=== PATIENT | female | born 1960 | race Caucasian/White ===

== ENCOUNTER 2020-01-13 22:40 | Emergency (ER) | payer BC ==
[~2020-01-13] VITALS: Ht 177.8 cm; Wt 102.1 kg
[2020-01-13] MEDS ORDERED: AMARYL4 MG PO (22:51)
[2020-01-13 23:55] LABS: ANION GAP 7 mmol/L (7-16); BASOPHILS 0.9 % (0.0-2.0); BUN 15 mg/dL (7-18); CALCIUM 9.8 mg/dL (8.5-10.1); CHLORIDE 104 mmol/L (98-107); CO2 31 mmol/L (21-32); CREATININE 0.7 mg/dL (0.6-1.0); EOSINOPHILS 5.1 % (0.0-3.0); GLUCOSE 107 mg/dL (74-106); HEMATOCRIT 43.3 % (37.0-47.0); HEMOGLOBIN 14.2 gm/dL (12.0-15.0); LYMPHOCYTES 30.3 % (24.0-44.0); MCH 27.7 pg (26.0-34.0); MCHC 32.9 g/dL (28.0-37.0); MCV 84.2 fL (80.0-100.0); MONOCYTES 10.3 % (1.0-8.0); PLATELET COUNT 245 thou/uL (150-400); POLYS 53.4 % (36.0-66.0); POTASSIUM 4.2 mmol/L (3.5-5.1); RBC 5.14 mil/uL (4.20-5.00); RDW 14.8 % (10.5-14.5); SODIUM 142 mmol/L (136-145); WBC 7.5 thou/uL (4.0-11.0)
[2020-01-14 00:04] LABS: TROPONIN-I <0.06 ng/mL (<0.06)
[2020-01-14 01:11] VITALS: BP 155/74
--- NOTE | 2020-01-14 07:37 | EKG ---
[facility] [place] [address] ELECTROCARDIOGRAM REPORT Name: VASILIY JOHNSON Room #: DEP [facility]#: [id number] Admission: 01/13/20 Attend Phys: Discharge: 01/14/20 Date of : 58 Report #: [id number] THIS REPORT FOR: cc: [facility] - Clinic physician unknown [facility] - Clinic physician unknown Michoacano Henry MD [facility] ~ THIS REPORT FOR: //name// [facility] ED Test Date: 2020-01-13 Test Time: 22:53:00 Pat Name: VASILIY JOHNSON Department: Room: Gender: F Pet Walker: [facility] : 1960 Requested By: Aiden Byrd Order Number: [id number] MD: Michoacano Henry Measurements Intervals Elton Rate: 84 P: 46 CO: 168 QRS: 27 QRSD: 98 T: 34 QT: 386 QTc: 457 Interpretive Statements Sinus rhythm No previous ECG available for comparison Electronically Signed On 01-14-2020 7:36:58 CDT by Michoacano Henry [email or web address] <ELECTRONICALLY SIGNED> By: Michoacano Henry MD, [facility] 01/14/20 0736 D: [id number] Michoacano Henry MD, FACC /EPI
== END 2020-01-14 01:11 | disposition home or self-care (01) ==
LOC: ER 22:40
PROVIDERS: Emergency Medicine
DX: R07.89 Other chest pain (principal); I10 Essential (primary) hypertension; M54.2 Cervicalgia; M25.512 Pain in left shoulder; R42 Dizziness and giddiness; E11.9 Type 2 diabetes mellitus without complications; E78.5 Hyperlipidemia, unspecified; Z79.899 Other long term (current) drug therapy; Z88.5 Allergy status to narcotic agent; Z88.0 Allergy status to penicillin

== ENCOUNTER 2020-01-14 18:33 | Emergency (ER) | payer BC ==
[~2020-01-14] VITALS: Ht 167.6 cm; Wt 104.3 kg
[~2020-01-14 18:33] MED LIST: AMARYL4 MG PO
[2020-01-14 21:01] LABS: ABSOLUTE NEUTROPHILS 3.6 thou/uL (1.4-8.2); BASOPHILS 0.8 % (0.0-2.0); HEMATOCRIT 42.8 % (37.0-47.0); HEMOGLOBIN 14.2 gm/dL (12.0-15.0); LYMPHOCYTES 26.1 % (24.0-44.0); MCH 27.8 pg (26.0-34.0); MCHC 33.2 g/dL (28.0-37.0); MCV 83.6 fL (80.0-100.0); MONOCYTES 10.8 % (1.0-8.0); PLATELET COUNT 240 thou/uL (150-400); POLYS 58.3 % (36.0-66.0); RBC 5.11 mil/uL (4.20-5.00); RDW 15.5 % (10.5-14.5); WBC 6.2 thou/uL (4.0-11.0)
[2020-01-14 21:46] LABS: CALCIUM 9.2 mg/dL (8.5-10.1); CREATININE 0.8 mg/dL (0.6-1.0); POTASSIUM 3.8 mmol/L (3.5-5.1)
[2020-01-14 21:48] LABS: ALBUMIN 3.8 g/dL (3.4-5.0); DIRECT BILIRUBIN 0.1 mg/dL (<0.1-0.2); TOTAL BILIRUBIN 0.4 mg/dL (0.2-1.0); TOTAL PROTEIN 7.6 g/dL (6.4-8.2)
[2020-01-14 22:36] VITALS: BP 162/79
== END 2020-01-14 22:37 | disposition home or self-care (01) ==
LOC: ER 18:33
PROVIDERS: Emergency Medicine
DX: I10 Essential (primary) hypertension (principal); R51 Headache; E11.9 Type 2 diabetes mellitus without complications; Z79.899 Other long term (current) drug therapy; Z88.0 Allergy status to penicillin; Z88.5 Allergy status to narcotic agent; Z20.828 Contact with and (suspected) exposure to other viral communicable diseases

== ENCOUNTER 2020-04-07 14:42 | Emergency (ER) | payer BC ==
[~2020-04-07] VITALS: Ht 172.7 cm; Wt 103.4 kg
--- NOTE | ~2020-04-07 | EKG ---
[facility] [address] [place] [address] ELECTROCARDIOGRAM REPORT Name: VASILIY JOHNSON Room #: DEP [facility]ER[facility]#: [id number] Admission: 04/07/20 Attend Phys: Discharge: 04/07/20 Date of : 58 Report #: [id number] <ELECTRONICALLY SIGNED> By: Michoacano Henry MD, FACC 04/10/20 07 51 51 Michoacano Henry MD, FACC /EPI
[2020-04-07] MEDS ORDERED: CARVEDILOL6.25 M1 PO (14:51)
[2020-04-07] MEDS ORDERED: CLONIDINE HCL0.1 MG PO (14:51)
[2020-04-07] MEDS ORDERED: JANUMET 50-5001 EACH PO (14:52)
[2020-04-07] MEDS ORDERED: TOUJEO SOL300 UNIT/1 SUBQ (14:52)
[2020-04-07 16:58] LABS: URINE BILIRUBIN NEGATIVE (Negative); URINE BLOOD NEGATIVE (Negative); URINE CLARITY CLEAR; URINE COLOR YELLOW; URINE GLUCOSE-RANDOM* 3+ (Negative); URINE KETONES NEGATIVE (Negative); URINE LEUKOCYTES-REFLEX NEGATIVE (Negative); URINE NITRITE-REFLEX NEGATIVE (Negative); URINE PROTEIN (DIPSTICK) NEGATIVE (Negative); URINE UROBILINOGEN 0.2 E.U./dl (0.2-1.0)
[2020-04-07 18:30] LABS: ABSOLUTE NEUTROPHILS 3.8 thou/uL (1.4-8.2); BASOPHILS 0.7 % (0.0-2.0); EOSINOPHILS 4.1 % (0.0-3.0); HEMATOCRIT 43.3 % (37.0-47.0); HEMOGLOBIN 14.2 gm/dL (12.0-15.0); LYMPHOCYTES 25.9 % (24.0-44.0); MCH 27.5 pg (26.0-34.0); MCHC 32.7 g/dL (28.0-37.0); MCV 84.1 fL (80.0-100.0); MONOCYTES 11.3 % (1.0-8.0); PLATELET COUNT 226 thou/uL (150-400); RBC 5.15 mil/uL (4.20-5.00); WBC 6.6 thou/uL (4.0-11.0)
[2020-04-07 18:42] LABS: ANION GAP 9 mmol/L (7-16); BUN 21 mg/dL (7-18); CALCIUM 10.9 mg/dL (8.5-10.1); CHLORIDE 103 mmol/L (98-107); CO2 27 mmol/L (21-32); CREATININE 1.1 mg/dL (0.6-1.0); GLUCOSE 113 mg/dL (74-106); SODIUM 139 mmol/L (136-145)
[2020-04-07 18:53] LABS: TROPONIN-I <0.06 ng/mL (<0.06)
[2020-04-07 20:46] VITALS: BP 159/69
== END 2020-04-07 20:50 | disposition home or self-care (01) ==
LOC: ER 14:42
PROVIDERS: Emergency Medicine
DX: I95.1 Orthostatic hypotension (principal); E11.65 Type 2 diabetes mellitus with hyperglycemia; I10 Essential (primary) hypertension; R35.0 Frequency of micturition; R60.0 Localized edema; R42 Dizziness and giddiness; R06.02 Shortness of breath; E11.9 Type 2 diabetes mellitus without complications; Z79.899 Other long term (current) drug therapy; Z79.4 Long term (current) use of insulin; Z88.5 Allergy status to narcotic agent; Z88.0 Allergy status to penicillin

== ENCOUNTER 2020-05-07 20:05 | Emergency (ER) | payer BC ==
[~2020-05-07] VITALS: Ht 177.8 cm; Wt 104.3 kg
[~2020-05-07 20:05] MED LIST changes: +CARVEDILOL6.25 M1 PO; +CLONIDINE HCL0.1 MG PO; +JANUMET 50-5001 EACH PO; +TOUJEO SOL300 UNIT/1 SUBQ
[2020-05-07] MEDS ORDERED: BIOTIN10000 MC1 PO (20:21)
[2020-05-07] MEDS ORDERED: DAILY MULTIPLE1 EACH PO (20:21)
[2020-05-07 21:18] VITALS: BP 179/89
== END 2020-05-07 21:19 | disposition home or self-care (01) ==
LOC: ER 20:05
DX: M79.672 Pain in left foot (principal); E11.9 Type 2 diabetes mellitus without complications; I10 Essential (primary) hypertension; Z88.5 Allergy status to narcotic agent; Z88.0 Allergy status to penicillin; Z79.899 Other long term (current) drug therapy; Z79.4 Long term (current) use of insulin; W22.8XXA Striking against or struck by other objects, initial encounter; Y93.89 Activity, other specified; Y92.89 Other specified places as the place of occurrence of the external cause; Y99.9 Unspecified external cause status

== ENCOUNTER 2020-11-15 23:23 | Emergency (ER) | payer BC ==
[~2020-11-15] VITALS: Ht 175.3 cm; Wt 102.1 kg
[~2020-11-15 23:23] MED LIST changes: +BIOTIN10000 MC1 PO; +DAILY MULTIPLE1 EACH PO
[2020-11-16 00:34] LABS: URINE BILIRUBIN NEGATIVE (Negative); URINE BLOOD NEGATIVE (Negative); URINE CLARITY CLEAR; URINE COLOR YELLOW; URINE GLUCOSE-RANDOM* 3+ (Negative); URINE KETONES NEGATIVE (Negative); URINE LEUKOCYTES-REFLEX NEGATIVE (Negative); URINE NITRITE-REFLEX NEGATIVE (Negative); URINE PROTEIN (DIPSTICK) TRACE (Negative); URINE SPECIFIC GRAVITY 1.015 (1.005-1.035); URINE UROBILINOGEN 0.2 E.U./dl (0.2-1.0)
[2020-11-16 00:45] LABS: WBC 7.2 thou/uL (4.0-11.0)
[2020-11-16 00:47] LABS: ABSOLUTE NEUTROPHILS 3.5 thou/uL (1.4-8.2); BASOPHILS 0.9 % (0.0-2.0); EOSINOPHILS 6.2 % (0.0-3.0); HEMATOCRIT 41.8 % (37.0-47.0); HEMOGLOBIN 13.8 gm/dL (12.0-15.0); LYMPHOCYTES 31.6 % (24.0-44.0); MCH 27.9 pg (26.0-34.0); MCV 84.5 fL (80.0-100.0); MONOCYTES 12.8 % (1.0-8.0); PLATELET COUNT 201 thou/uL (150-400); POLYS 48.5 % (36.0-66.0); RBC 4.95 mil/uL (4.20-5.00); RDW 14.8 % (10.5-14.5)
[2020-11-16 00:53] LABS: CALCIUM 9.5 mg/dL (8.5-10.1); CREATININE 1.4 mg/dL (0.6-1.0); POTASSIUM 4.1 mmol/L (3.5-5.1)
[2020-11-16 00:55] LABS: ALBUMIN 3.6 g/dL (3.4-5.0); TOTAL BILIRUBIN 0.3 mg/dL (0.2-1.0); TOTAL PROTEIN 7.3 g/dL (6.4-8.2)
[2020-11-16] MEDS ORDERED: PEPCID20 MG PO (04:34)
[2020-11-16 05:07] VITALS: BP 167/76
== END 2020-11-16 05:10 | disposition home or self-care (01) ==
LOC: ER 23:23
PROVIDERS: Emergency Medicine
DX: R10.11 Right upper quadrant pain (principal); E11.9 Type 2 diabetes mellitus without complications; I10 Essential (primary) hypertension; G62.9 Polyneuropathy, unspecified; K21.9 Gastro-esophageal reflux disease without esophagitis; Z79.4 Long term (current) use of insulin; Z79.899 Other long term (current) drug therapy; Z88.6 Allergy status to analgesic agent; Z88.0 Allergy status to penicillin; Z90.49 Acquired absence of other specified parts of digestive tract

== ENCOUNTER 2021-04-30 17:08 | Emergency (ER) | payer BC ==
[~2021-04-30] VITALS: Ht 175.3 cm; Wt 102.1 kg
[~2021-04-30 17:08] MED LIST changes: +PEPCID20 MG PO
[2021-04-30 19:02] LABS: URINE BILIRUBIN NEGATIVE (Negative); URINE BLOOD TRACE (Negative); URINE CLARITY CLEAR; URINE COLOR YELLOW; URINE GLUCOSE-RANDOM* 3+ (Negative); URINE KETONES NEGATIVE (Negative); URINE LEUKOCYTES-REFLEX NEGATIVE (Negative); URINE NITRITE-REFLEX NEGATIVE (Negative); URINE PROTEIN (DIPSTICK) TRACE (Negative); URINE SPECIFIC GRAVITY 1.015 (1.005-1.035); URINE UROBILINOGEN 0.2 E.U./dl (0.2-1.0)
[2021-05-01 02:48] LABS: ABSOLUTE NEUTROPHILS 4.8 thou/uL (1.4-8.2); BASOPHILS 1.3 % (0.0-2.0); EOSINOPHILS 4.8 % (0.0-3.0); HEMATOCRIT 43.7 % (37.0-47.0); HEMOGLOBIN 14.3 gm/dL (12.0-15.0); LYMPHOCYTES 25.7 % (24.0-44.0); MCH 27.4 pg (26.0-34.0); MCHC 32.7 g/dL (28.0-37.0); MCV 83.6 fL (80.0-100.0); MONOCYTES 9.8 % (1.0-8.0); PLATELET COUNT 234 thou/uL (150-400); POLYS 58.4 % (36.0-66.0); RBC 5.22 mil/uL (4.20-5.00); RDW 15.1 % (10.5-14.5); WBC 8.2 thou/uL (4.0-11.0)
[2021-05-01 02:55] LABS: CALCIUM 10.2 mg/dL (8.5-10.1); POTASSIUM 4.2 mmol/L (3.5-5.1)
[2021-05-01 03:00] LABS: ALBUMIN 3.8 g/dL (3.4-5.0); TOTAL BILIRUBIN 0.3 mg/dL (0.2-1.0); TOTAL PROTEIN 7.7 g/dL (6.4-8.2)
[2021-05-01 05:28] VITALS: BP 168/80
== END 2021-05-01 05:37 | disposition home or self-care (01) ==
LOC: ER 17:08
PROVIDERS: Emergency Medicine; Nurse Practitioner
DX: R10.84 Generalized abdominal pain (principal); E11.9 Type 2 diabetes mellitus without complications; I10 Essential (primary) hypertension; Z79.899 Other long term (current) drug therapy; Z88.5 Allergy status to narcotic agent; Z88.0 Allergy status to penicillin